=== PATIENT | male | born 1945 | race Caucasian/White ===

== ENCOUNTER 2021-05-28 18:57 | Inpatient (IN) | payer MEDICARE, OTHER ==
[2021-05-28] MEDS ORDERED: Fentanyl 100 MCG/2 ML VIAL ONE ×2 (19:45→20:12)
[2021-05-28] MEDS ORDERED: Ondansetron PF 4 MG/2 ML Vial ONE (19:47)
[2021-05-28] MEDS ORDERED: Insulin Regular 300 UNITS/3 ML VIAL SC PRN (20:01)
[2021-05-28] MEDS ORDERED: Ondansetron ODT 4 MG TAB PO PRN (20:01)
[2021-05-28] MEDS ORDERED: Dextrose 5% in Water 1,000 ML IV PRN (20:01)
[2021-05-28] MEDS ORDERED: Dextrose 50% Abboject 50 ML SYRINGE SLOW IVP PRN (20:01)
[2021-05-28] MEDS ORDERED: hydrALAZINE 20 MG/ML VIAL SLOW IVP PRN (20:01)
[2021-05-28] MEDS ORDERED: Ondansetron PF 4 MG/2 ML Vial IVP PRN (20:01)
[2021-05-28] MEDS ORDERED: Morphine 4 MG/ML VIAL SLOW IVP PRN (20:13)
[2021-05-28 21:17] VITALS: BMI 35.4
[2021-05-28] MEDS: Enoxaparin Sodium 40 MG/0.4 ML SYRINGE SC SCH (23:33)
[2021-05-28] MEDS: Famotidine/PF 20 mg/2ml Vial SLOW IVP SCH (23:34)
[2021-05-28] MEDS: Lactated Ringer's 1,000 ML IV SCH (23:34)
[2021-05-28] MEDS: Morphine 4 MG/ML VIAL SLOW IVP PRN (23:48)
[2021-05-29] MEDS: Ketorolac Tromethamine 30 MG/ML VIAL IVP PRN ×4 (01:40→19:10)
[2021-05-29] MEDS: Morphine 4 MG/ML VIAL SLOW IVP PRN ×5 (01:41→14:03)
[2021-05-29] MEDS: Lactated Ringer's 1,000 ML IV SCH ×3 (05:02→08:08)
[2021-05-29 07:09] LABS: Hemoglobin A1c 5.6 % (4.0-6.0)
[2021-05-29 07:25] LABS: ALT (SGPT) 11 U/L (8-55); AST (SGOT) 11 U/L (5-34); Albumin 3.4 g/dL (3.4-4.8); Alkaline Phosphatase 52 U/L (40-110); Anion Gap 14 mmol/L (10-20); BUN (Urea Nitrogen) 34 mg/dL (8.4-25.7); Calc. Creatinine Clearance 54 mL/min (70-130); Calcium 8.2 mg/dL (7.8-10.44); Carbon Dioxide 27 mmol/L (23-31); Chloride 105 mmol/L (98-107); Globulin 2.5 g/dL (2.4-3.5); Glucose 90 mg/dL (83-110); Potassium 3.5 mmol/L (3.5-5.1); Protein, Total 5.9 g/dL (5.8-8.1); Sodium 142 mmol/L (136-145)
[2021-05-29 07:52] LABS: Band 10 % (5-11); Eosinophils 8 % (0-10); Lymphocytes 17 % (21-51); MDiff Complete? YES; Mean Corpuscular HGB CONC 31.3 g/dL (32.0-36.0); Mean Corpuscular Hemoglobin 32.3 pg (27.0-31.0); Mean Platelet Volume 9.2 fL (7.4-10.4); Monocytes 13 % (0-10); Neutrophil 38 % (42-75); Platelet Count 257 thou/uL (130-400); Platelet Morphology Comment Appears Adequate; RBC Distribution Width 13.7 % (11.5-14.5); RBC Morphology Normal; Reactive Lymphocytes 14 % (0-10); Red Blood Cell (RBC) Count 3.71 mill/uL (4.70-6.10); White Blood Cell (WBC) Count 8.8 thou/uL (4.8-10.8)
[2021-05-29] MEDS: Famotidine/PF 20 mg/2ml Vial SLOW IVP SCH (08:02)
[2021-05-29] MEDS ORDERED: Lactated Ringer's 1,000 ML IV SCH (08:30)
[2021-05-29] MEDS ORDERED: MD-Gastroview 120 ML BOT ONE (11:10)
[2021-05-29] MEDS ORDERED: Albuterol Sulfate 2.5 mg/3 ml Neb NEB PRN (15:17)
[2021-05-29] MEDS ORDERED: Citrucel 500 MG TAB PO SCH (18:00)
[2021-05-29] MEDS: Enoxaparin Sodium 40 MG/0.4 ML SYRINGE SC SCH (20:39)
[2021-05-29] MEDS: Carvedilol 6.25 MG TAB PO SCH (22:57)
[2021-05-30] MEDS: Ketorolac Tromethamine 30 MG/ML VIAL IVP PRN ×3 (00:44→10:00)
[2021-05-30 08:15] VITALS: BP 122/78; TEMP 98.8
[2021-05-30] MEDS ORDERED: Polyethylene Glycol 3350 17 GM Packet PO SCH (09:00)
[2021-05-30] MEDS ORDERED: Tamsulosin HCl 0.4 MG CAP PO SCH (09:00)
[2021-05-30] MEDS ORDERED: metFORMIN XR 500 MG TAB PO SCH (09:00)
[2021-05-30] MEDS ORDERED: Amlodipine 10 MG TAB PO SCH (09:00)
[2021-05-30] MEDS ORDERED: Allopurinol 300 MG TAB PO SCH (09:00)
[2021-05-30] MEDS: Carvedilol 6.25 MG TAB PO SCH (09:23)
[2021-06-01] MEDS ORDERED: FLU VACC QS2021-22(65YR UP)/PF 240 MCG/0.7 ML SYRINGE IM ONE (09:00)
== END 2021-05-30 10:23 | disposition home or self-care (01) | DRG 390 ==
LOC: ERS 18:57 → SJJU 20:01
PROVIDERS: ADMIT Specialist; ATTEND Specialist
DX: K56.609 Unspecified intestinal obstruction, unspecified as to partial versus complete obstruction (principal); J44.9 Chronic obstructive pulmonary disease, unspecified; Z20.822 Contact with and (suspected) exposure to COVID-19; M10.9 Gout, unspecified; I10 Essential (primary) hypertension; E78.00 Pure hypercholesterolemia, unspecified; Z90.81 Acquired absence of spleen; Z90.49 Acquired absence of other specified parts of digestive tract
CPT/HCPCS: 36415; 36416; 74018; 74022; 74250; 80053; 83036; 85025; 96374; 96375; J1650; J1885; J2270; J2405; J3010; J7120; Q9963; S0028

== ENCOUNTER 2024-03-01 11:10 | Inpatient (IN) | payer MEDICARE ==
[2024-03-01 12:10] VITALS: BMI 36.6
[2024-03-01] MEDS: Morphine 2 MG/ML VIAL SLOW IVP PRN (12:10)
[2024-03-01] MEDS ORDERED: Ipratropium/Albuterol 3 ML NEB NEB PRN (12:34)
[2024-03-01] MEDS ORDERED: Glucagon 1 MG/ML KIT IM PRN (12:35)
[2024-03-01] MEDS ORDERED: Dextrose 50% Abboject 50 ML SYRINGE SLOW IVP PRN (12:35)
[2024-03-01] MEDS ORDERED: Insulin Lispro 100 UNIT/ML 10 ML VIAL SC PRN (12:35)
[2024-03-01] MEDS ORDERED: Dextrose 5% in Water 1,000 ML IV PRN (12:35)
[2024-03-01] MEDS: Sodium Chloride 0.9% 1,000 ML IV SCH (13:05)
[2024-03-01] MEDS: Famotidine/PF 20 mg/2ml Vial SLOW IVP SCH (21:15)
[2024-03-02] MEDS: Enoxaparin 40 MG (0.4 mL) SYRINGE SC SCH (07:51)
[2024-03-02 10:22] LABS: #Basophils 0.04 10x3/uL (0.0-0.2); %Basophils 0.4 % (0.0-1.0); %Lymphocytes 18.4 % (21.0-51.0); Hematocrit 42.7 % (42.0-52.0); Mean Corpuscular HGB CONC 32.8 g/dL (32.0-36.0); Mean Corpuscular Hemoglobin 32.9 pg (27.0-31.0); Mean Corpuscular Volume 100.2 fL (78.0-98.0); Mean Platelet Volume 10.7 fL (7.4-10.4); Platelet Count 331 10x3/uL (130-400); RBC Distribution Width 15.4 % (11.5-14.5); Red Blood Cell (RBC) Count 4.26 mill/uL (4.70-6.10)
[2024-03-02 10:23] LABS: #Basophils 0.04 10x3/uL (0.0-0.2); %Basophils 0.3 % (0.0-1.0); %Eosinophils 2.2 % (0.0-10.0); %Lymphocytes 17.6 % (21.0-51.0); %Monocytes 13.9 % (0.0-10.0); %Neutrophils 65.7 % (42.0-75.0); Hematocrit 41.2 % (42.0-52.0); Hemoglobin 13.9 g/dL (14.0-18.0); Mean Corpuscular HGB CONC 33.7 g/dL (32.0-36.0); Mean Corpuscular Hemoglobin 32.9 pg (27.0-31.0); Mean Corpuscular Volume 97.4 fL (78.0-98.0); Mean Platelet Volume 10.9 fL (7.4-10.4); Platelet Count 318 10x3/uL (130-400); RBC Distribution Width 15.4 % (11.5-14.5); Red Blood Cell (RBC) Count 4.23 mill/uL (4.70-6.10)
[2024-03-02 10:37] LABS: Anion Gap 14 mmol/L (10-20); BUN (Urea Nitrogen) 18 mg/dL (8.4-25.7); Calc. Creatinine Clearance 111 mL/min (70-130); Calcium 8.5 mg/dL (7.8-10.44); Carbon Dioxide 22 mmol/L (23-31); Chloride 111 mmol/L (98-107); Estimated GFR 89; Glucose 96 mg/dL (83-110); Potassium 3.6 mmol/L (3.5-5.1); Sodium 143 mmol/L (136-145)
[2024-03-02 10:38] LABS: Anion Gap 14 mmol/L (10-20); BUN (Urea Nitrogen) 18 mg/dL (8.4-25.7); Calc. Creatinine Clearance 112 mL/min (70-130); Calcium 8.4 mg/dL (7.8-10.44); Carbon Dioxide 22 mmol/L (23-31); Chloride 111 mmol/L (98-107); Estimated GFR 89; Glucose 98 mg/dL (83-110); Potassium 3.6 mmol/L (3.5-5.1); Sodium 143 mmol/L (136-145)
[2024-03-02 10:41] LABS: INR-International Normal Ratio 1.2; PTT 32.2 sec (22.9-36.1); Prothrombin Time 14.7 sec (12.0-14.7)
[2024-03-02] MEDS ORDERED: hydrALAZINE 20 MG/ML VIAL SLOW IVP PRN (14:16)
[2024-03-02] MEDS: Phenol 177 ML BOT PO PRN (15:26)
[2024-03-03] MEDS ORDERED: MD-Gastroview 120 ML BOT ONE (08:25)
[2024-03-03 08:26] LABS: #Basophils 0.05 10x3/uL (0.0-0.2); %Basophils 0.4 % (0.0-1.0); %Eosinophils 0.8 % (0.0-10.0); %Lymphocytes 15.8 % (21.0-51.0); %Monocytes 13.7 % (0.0-10.0); Hematocrit 40.4 % (42.0-52.0); Hemoglobin 13.5 g/dL (14.0-18.0); Mean Corpuscular HGB CONC 33.4 g/dL (32.0-36.0); Mean Corpuscular Hemoglobin 32.5 pg (27.0-31.0); Mean Corpuscular Volume 97.3 fL (78.0-98.0); Mean Platelet Volume 11.4 fL (7.4-10.4); Platelet Count 318 10x3/uL (130-400); Red Blood Cell (RBC) Count 4.15 mill/uL (4.70-6.10)
[2024-03-03 08:42] LABS: ALT (SGPT) 14 U/L (8-55); AST (SGOT) 17 U/L (5-34); Albumin 3.3 g/dL (3.4-4.8); Alkaline Phosphatase 89 U/L (40-110); Anion Gap 15 mmol/L (10-20); BUN (Urea Nitrogen) 13 mg/dL (8.4-25.7); Bilirubin, Total 0.8 mg/dL (0.2-1.2); Calc. Creatinine Clearance 127 mL/min (70-130); Calcium 8.5 mg/dL (7.8-10.44); Carbon Dioxide 23 mmol/L (23-31); Chloride 106 mmol/L (98-107); Estimated GFR 92; Globulin 3.3 g/dL (2.4-3.5); Glucose 88 mg/dL (83-110); Potassium 3.5 mmol/L (3.5-5.1); Protein, Total 6.6 g/dL (5.8-8.1); Sodium 140 mmol/L (136-145)
[2024-03-03] MEDS: Sodium Chloride 0.45% 1,000 ML IV SCH (08:44)
[2024-03-03] MEDS: HYDROcodone/Acetaminophen 5/325 mg Tablet PO PRN (11:15)
[2024-03-03] MEDS: Ondansetron PF 4 MG/2 ML Vial IVP PRN (11:15)
[2024-03-03] MEDS: Scopolamine 1 mg/72 hour Patch TD SCH (13:11)
[2024-03-03] MEDS: Morphine 2 MG/ML VIAL SLOW IVP PRN (13:12)
[2024-03-03 15:48] VITALS: TEMP 98.2
[2024-03-03 18:17] VITALS: BP 144/88
[2024-03-04] MEDS ORDERED: FLU (Fluad Triv) TS24-25 (65UP)/MF59C/PF 45 MCG/0.5 ML Syringe IM ONE (17:30)
== END 2024-03-03 17:55 | disposition home or self-care (01) | DRG 390 ==
LOC: SURG B 11:10
PROVIDERS: ADMIT Internal Medicine; ATTEND Internal Medicine
DX: K56.600 Partial intestinal obstruction, unspecified as to cause (principal); I10 Essential (primary) hypertension; J44.9 Chronic obstructive pulmonary disease, unspecified; M10.9 Gout, unspecified; Z87.891 Personal history of nicotine dependence; Z66 Do not resuscitate; Z79.899 Other long term (current) drug therapy; E11.9 Type 2 diabetes mellitus without complications; N40.0 Benign prostatic hyperplasia without lower urinary tract symptoms
CPT/HCPCS: 36415; 36416; 74250; 80048; 80053; 83735; 85025; 85610; 85730; 86850; 86900; 86901; J1650; J2272; J2405; J3490; J7030; Q9963